=== PATIENT | female | born 1970 | race American Indian/Alaskan Native ===

== ENCOUNTER 2017-10-06 11:39 | Emergency (ER) | payer OTHER ==
[2017-10-06 11:39] VITALS: BMI 24.5
[2017-10-06] MEDS ORDERED: Sodium Chloride 0.9% 1,000 ML IV ONE (13:08)
[2017-10-06 13:50] LABS: BASO % 1.1 % (0.0-2.0); EOS % 1.1 % (0.0-4.0); HEMOGLOBIN 15.1 g/dL (11.0-16.0); LYMPH # 1.6 K/uL (1.0-4.3); LYMPH % 36.9 % (20.0-40.0); MEAN CELL VOLUME 84.6 fL (81.0-99.0); MEAN CORPUSCULAR HEMOGLOBIN 28.6 pg (27.0-31.0); MEAN CORPUSCULAR HGB CONC 33.8 g/dL (33.0-37.0); MEAN PLATELET VOLUME 9.9 fL (7.2-11.7); MONO # 0.2 K/uL (0.0-0.8); MONO % 5.2 % (0.0-10.0); NEUT # 2.4 K/uL (1.8-7.0); NEUT % 55.7 % (50.0-75.0); NRBC % 0.1 % (0.0-2.0); RBC 5.29 Mil/uL (3.80-5.20); RED CELL DISTRIBUTION WIDTH 14.1 % (11.5-14.5); WHITE BLOOD COUNT 4.4 K/uL (4.8-10.8)
--- NOTE | 2017-10-06 13:55 | C.PDOC ---
History Of Present Illness 47 year old female presents to ED for evaluation of lightheadedness, and dizziness for the past few days. Pt also reports sensitivity to light, weakness in her legs, tingling sensation to arms/feet, and tension behind her eyes. Pt states she has history of migraine but it does not feel similar. Notes taking Meclizine without improvement. Pt reports being seen by clinical lab specialist, and ENT. Denies chest pain, shortness of breath, fever, or chills. Chief Complaint (Nursing): Dizziness/Lightheaded History Per: Patient History/Exam Limitations: no limitations Onset/Duration Of Symptoms: Days Current Symptoms Are (Timing): Still Present Past Medical History Reviewed: Historical Data, Nursing Documentation, Vital Signs Vital Signs: Last Vital Signs Temp 98.7 F 10/06/17 15:57 Pulse 75 10/06/17 15:57 Resp 16 10/06/17 15:57 BP 135/72 10/06/17 15:57 Pulse Ox 100 10/06/17 15:57 - Medical History PMH: Anemia, Asthma, Hypothyroidism Denies: Chronic Kidney Disease - [facility] Procedures OTHER AND UNSPECIFIED TOTAL ABDOMINAL HYSTERECTOMY (12/18/14) OTHER LOCAL DESTRUC SKIN (12/18/14) PACKED CELL TRANSFUSION (12/18/14) Family History: States: Unknown Family Hx - Social History Hx Tobacco Use: No Hx Alcohol Use: Yes Hx Substance Use: No - Immunization History Hx Tetanus Toxoid Vaccination: No Hx Influenza Vaccination: No Hx Pneumococcal Vaccination: No Review Of Systems Except As Marked, All Systems Reviewed And Found Negative. Constitutional: Negative for: Fever, Chills Eyes: Negative for: Vision Change Cardiovascular: Positive for: Light Headedness. Negative for: Chest Pain, Palpitations Respiratory: Negative for: Cough, Shortness of Breath Gastrointestinal: Negative for: Nausea, Vomiting, Abdominal Pain Neurological: Positive for: Weakness (legs), Dizziness. Negative for: Headache Physical Exam - Physical Exam Appears: Non-toxic, No Acute Distress Skin: Normal Color, Warm, Dry Head: Normacephalic Eye(s): bilateral: Normal Inspection Oral Mucosa: Moist Cardiovascular: Rhythm Regular Respiratory: Normal Breath Sounds, No Rales, No Rhonchi, No Wheezing Gastrointestinal/Abdominal: Soft, No Tenderness Extremity: Normal ROM Neurological/Psych: Oriented x3, Normal Speech ED Course And Treatment - Laboratory Results Result Diagrams: 10/06/17 13:39 10/06/17 13:39 ECG: Interpreted By Me, Viewed By Me ECG Rhythm: Sinus Rhythm ECG Interpretation: No Acute Changes Interpretation Of ECG: Normal axis. Rate From EC (bpm) O2 Sat by Pulse Oximetry: 99 (RA) Pulse Ox Interpretation: Normal Medical Decision Making Medical Decision Making: EKG, blood work ordered and reviewed. Pt was given Meclizine and IV fluids. Disposition - [facility] - Disposition: HOME/ ROUTINE Disposition Time: 14:50 Condition: GOOD Additional Instructions: Thank you for letting us take care of you today. The emergency medical care you received today was directed at your acute symptoms. If you were prescribed any medication, please fill it and take as directed. It may take several days for your symptoms to resolve. Return to the Emergency Department if your symptoms worsen, do not improve, or if you have any other problems. Please contact your doctor or call one of the physicians/clinics you have been referred to that are listed on the Patient Visit Information form that is included in your discharge packet. Bring any paperwork you were given at discharge with you along with any medications you are taking to your follow up visit. Our treatment cannot replace ongoing medical care by a primary care provider (PCP) outside of the emergency department. Thank you for allowing the [facility] team to be part of your care today. Follow up with your clinical lab specialist this week for re-evaluation and further management. Instructions: Vertigo (a Type of Dizziness) Forms: [employer] (Tamazight) - Clinical Impression Clinical Impression: Vertigo - Scribe Statement The provider has reviewed the documentation as recorded by the Scribemily Lopez All medical record entries made by the Ariibe were at my direction and personally dictated by me. I have reviewed the chart and agree that the record accurately reflects my personal performance of the history, physical exam, medical decision making, and the department course for this patient. I have also personally directed, reviewed, and agree with the discharge instructions and disposition.
[2017-10-06 14:02] LABS: ALB/GLOB RATIO 1.1 (1.0-2.1); ALBUMIN 4.6 g/dL (3.5-5.0); CALCIUM 9.7 mg/dl (8.6-10.4); GFR AFRICAN-AMERICAN > 60; GFR NON-AFRICAN AMERICAN > 60
[2017-10-06 14:07] LABS: ALT/SGPT 19 U/L (9-52); AST/SGOT 35 U/L (14-36); BLOOD UREA NITROGEN 10 mg/dL (7-17)
[2017-10-06 14:52] LABS: T3 1.47 nmol/L (1.49-2.60)
[2017-10-06 15:59] VITALS: BP 135/72; PULSE 75; RESP 16; TEMP 98.7
[2017-10-06 20:45] VITALS: O2SAT 99
--- NOTE | 2017-10-09 12:52 | CARD ---
APPROVED REPORT EKG Measurement Heart [id number] <Conclusion> Normal sinus rhythm Nonspecific T wave abnormality Abnormal ECG
== END 2017-10-06 15:57 | disposition home or self-care (01) ==
LOC: C.ER 11:39
DX: R42 Dizziness and giddiness (principal); D64.9 Anemia, unspecified; E03.9 Hypothyroidism, unspecified
CPT/HCPCS: 80053; 84439; 84443; 84480; 84484; 85025; 93005; 96360; 99285; J7040

== ENCOUNTER 2017-10-19 18:23 | Emergency (ER) | payer OTHER ==
[2017-10-19 18:23] VITALS: BMI 24.5
--- NOTE | 2017-10-19 20:01 | C.PDOC ---
History Of Present Illness 47yo female, presents to ER for evaluation of blurry vision lasting for a couple seconds while she was walking earlier tonight. Sx going on for months, on and off. She also reports associated dizziness. She denies any headache, nausea or vomiting. No other complaints. Time Seen by Provider: 10/19/17 19:50 Chief Complaint (Nursing): Dizziness/Lightheaded History Per: Patient History/Exam Limitations: no limitations Onset/Duration Of Symptoms: Other (seconds) Current Symptoms Are (Timing): Gone Activity At Onset Of Symptoms: Walking Past Medical History Reviewed: Historical Data, Nursing Documentation, Vital Signs Vital Signs: Last Vital Signs Temp 98.0 F 10/19/17 19:35 Pulse 67 10/19/17 19:35 Resp 16 10/19/17 19:35 BP 125/83 10/19/17 19:35 Pulse Ox 100 10/19/17 21:58 - Medical History PMH: Anemia, Asthma, Hypothyroidism Denies: Chronic Kidney Disease Surgical History: No Surg Hx - [facility] Procedures OTHER AND UNSPECIFIED TOTAL ABDOMINAL HYSTERECTOMY (12/18/14) OTHER LOCAL DESTRUC SKIN (12/18/14) PACKED CELL TRANSFUSION (12/18/14) Family History: States: Unknown Family Hx - Social History Hx Tobacco Use: No Hx Alcohol Use: Yes Hx Substance Use: No - Immunization History Hx Tetanus Toxoid Vaccination: No Hx Influenza Vaccination: No Hx Pneumococcal Vaccination: No Review Of Systems Except As Marked, All Systems Reviewed And Found Negative. Eyes: Positive for: Vision Change Gastrointestinal: Negative for: Nausea, Vomiting Neurological: Positive for: Dizziness. Negative for: Headache Physical Exam - Physical Exam Appears: Non-toxic, No Acute Distress Skin: Normal Color, Warm, Dry Head: Atraumatic, Normacephalic Eye(s): bilateral: Normal Inspection, PERRL, EOMI Neck: Normal ROM, Supple Chest: Symmetrical Cardiovascular: Rhythm Regular Respiratory: Normal Breath Sounds, No Wheezing Neurological/Psych: Oriented x3, Normal Speech, Normal Cognition, Normal Cranial Nerves, Normal Motor, Normal Sensation, No Other (focal deficits) ED Course And Treatment - Laboratory Results Result Diagrams: 10/19/17 20:13 10/19/17 20:13 O2 Sat by Pulse Oximetry: 100 (RA) Pulse Ox Interpretation: Normal NIHSS Stroke Scale 2 - Date/Time Evaluation Performed Date Performed: 10/19/17 Time Performed: 20:02 When Was NIHSS Performed: Baseline - How Severe is the Stroke Level of Consciousness: 0=Alert LOC to Questions: 0=Both comments correct LOC to commands: 0=Obeys both correctly Best Gaze: 0=Normal Visual: 0=No visual loss Facial: 0=Normal Motor Arm - Left: 0=No drift Motor Arm - Right: 0=No drift Motor Leg - Left: 0=No drift Motor Leg - Right: 0=No drift Limb Ataxia: 0=Absent Sensory: 0=Normal Best Language: 0=No aphasia Dysarthia: 0=Normal articulation Extinction & Inattention (Neglect): 0=Normal, no object Score: 0 Medical Decision Making Medical Decision Making: Impression: Blurry vision, dizziness Plan: -- CT Head -- Labs -- EKG Disposition Counseled Patient/Family Regarding: Diagnosis - Disposition Referrals: [facility] [Outside] Disposition: HOME/ ROUTINE Disposition Time: 21:56 Condition: STABLE Prescriptions: Meclizine [Antivert] 12.5 mg PO Q6 #14 tab Instructions: Dizziness, Nonvertigo, (DC) Forms: [employer] (Faroese) - POA Present On Arrival: None - Clinical Impression Clinical Impression: Dizziness - Scribe Statement The provider has reviewed the documentation as recorded by the Scribe (Leslee Mckenzie) Provider Attestation: All medical record entries made by the Scribe were at my direction and personally dictated by me. I have reviewed the chart and agree that the record accurately reflects my personal performance of the history, physical exam, medical decision making, and the department course for this patient. I have also personally directed, reviewed, and agree with the discharge instructions and disposition.
[2017-10-19 20:17] LABS: BASO % 0.8 % (0.0-2.0); EOS # 0.1 K/uL (0.0-0.7); EOS % 1.8 % (0.0-4.0); HEMOGLOBIN 14.1 g/dL (11.0-16.0); LYMPH # 1.9 K/uL (1.0-4.3); LYMPH % 38.4 % (20.0-40.0); MEAN CORPUSCULAR HEMOGLOBIN 28.3 pg (27.0-31.0); MEAN CORPUSCULAR HGB CONC 33.7 g/dL (33.0-37.0); MEAN PLATELET VOLUME 9.9 fL (7.2-11.7); MONO # 0.4 K/uL (0.0-0.8); MONO % 9.3 % (0.0-10.0); NEUT # 2.4 K/uL (1.8-7.0); NEUT % 49.7 % (50.0-75.0); NRBC % 0.1 % (0.0-2.0); RBC 4.98 Mil/uL (3.80-5.20); RED CELL DISTRIBUTION WIDTH 13.8 % (11.5-14.5); WHITE BLOOD COUNT 4.8 K/uL (4.8-10.8)
[2017-10-19 20:32] LABS: ALB/GLOB RATIO 1.4 (1.0-2.1); ALBUMIN 4.4 g/dL (3.5-5.0); ALT/SGPT 19 U/L (9-52); AST/SGOT 25 U/L (14-36); BLOOD UREA NITROGEN 15 mg/dL (7-17); CALCIUM 9.4 mg/dl (8.6-10.4); GFR AFRICAN-AMERICAN > 60; GFR NON-AFRICAN AMERICAN > 60
[2017-10-19 21:01] LABS: T3 1.73 nmol/L (1.49-2.60)
[2017-10-19 21:27] LABS: BARBITURATES, UR NEGATIVE (NEGATIVE); BENZODIAZEPINES, UR NEGATIVE (NEGATIVE); OPIATES, UR NEGATIVE (NEGATIVE); PHENCYCLIDINE, UR NEGATIVE (NEGATIVE)
--- NOTE | 2017-10-19 21:45 | CT ---
EXAM: CT Head Without Intravenous Contrast CLINICAL HISTORY: 47 years old, female; Pain and signs and symptoms; Dizziness; Headache; Headache not specified TECHNIQUE: Axial computed tomography images of the head/brain without intravenous contrast. All CT scans at this facility use one or more dose reduction techniques, viz.: automated exposure control; ma/kV adjustment per patient size (including targeted exams where dose is matched to indication; i.e. head); or iterative reconstruction technique. Coronal and sagittal reformatted images were created and reviewed. COMPARISON: CT - HEAD W/O CONTRAST 2016-10-21 19:25 FINDINGS: Brain: Minimal atrophy. No intracranial hemorrhage. No mass. No definite edema. Ventricles: No hydrocephalus. Bones/joints: No acute fracture. Soft tissues: Unremarkable. Sinuses: No acute sinusitis. Mastoid air cells: No mastoid effusion. Orbits: Unremarkable as visualized. IMPRESSION: 1. No definite acute intracranial abnormality. 2. Incidental/non-acute findings are described above.
[2017-10-19 22:26] VITALS: BP 113/75; PULSE 62; RESP 18; TEMP 98.7; O2SAT 98
== END 2017-10-19 22:37 | disposition home or self-care (01) ==
LOC: C.ER 18:23
DX: R42 Dizziness and giddiness (principal)